=== PATIENT | female | born 1945 | race Caucasian/White ===

== ENCOUNTER 2016-09-13 06:28 | Day surgery (SDC) | payer MEDICARE, OTHER ==
--- NOTE | ~2016-09-13 | EGD ---
EGD REPORT [facility] [address] [place] [address] NAME: YONG SOARES : [birth year] STATUS : REG [facility]#: [id number] AGE: 70 ADM/REG DATE : 09/13/16 MR#: [id number] REPORT SERV DATE: 09/13/16 DICTATED BY: SHAAN GUTIÉRREZ DATE: 09/13/16 REPORT STATUS : Draft TRANSCRIBED BY: [facility] DATE: 09/13/16 Endoscopy Center Patient Name: Yong Soares Date of : 1945 Attending MD: SHAAN GUTIÉRREZ MD Procedure Date No Time: 09/13/2016 Procedure: Colonoscopy Indications: Screening for colorectal malignant neoplasm Referring MD: BUCKY CHRISTY Medicines: as per anesthesia Complications: No immediate complications. Procedure: Pre-Anesthesia Assessment: - ASA Grade Assessment: II - A patient with mild systemic disease. After I obtained informed consent, the scope was passed under direct vision. Throughout the procedure, the patient's blood pressure, pulse, and oxygen saturations were monitored continuously. The PCF [id number] was introduced through the anus and advanced to the cecum, identified by appendiceal orifice and ileocecal valve. The colonoscopy was somewhat difficult due to significant looping and a tortuous colon. The patient tolerated the procedure. The quality of the bowel preparation was adequate to identify polyps. Findings: The perianal and digital rectal examinations were normal. A sessile polyp was found in the sigmoid colon. The polyp was 5 mm in size. The polyp was removed with a jumbo cold forceps. Resection and retrieval were complete. Internal hemorrhoids were found during endoscopy and were mild. Impression: - One 5 mm polyp in the sigmoid colon. Resected and retrieved. - Internal hemorrhoids. Recommendation: - Await pathology results. - Repeat colonoscopy for surveillance based on pathology results. Procedure Code(s): --- Professional --- 33980, Colonoscopy, flexible, proximal to splenic flexure; with biopsy, single or multiple Diagnosis Code(s): --- Professional --- EGD REPORT [facility] [address] [id number] NAME: YONG SOARES : [birth year] STATUS : REG [facility]#: [id number] AGE: 70 ADM/REG DATE : 09/13/16 MR#: [id number] REPORT SERV DATE: 09/13/16 DICTATED BY: SHAAN GUTIÉRREZ. DATE: 09/13/16 REPORT STATUS : Draft TRANSCRIBED BY: [employer] DATE: 09/13/16 D12.5, Benign neoplasm of sigmoid colon K64.8, Other hemorrhoids Z12.11, Encounter for screening for malignant neoplasm of colon CPT copyright 2013 [employer]. All rights reserved. The codes documented in this report are preliminary and upon adult education professional review may be revised to meet current compliance requirements. SHAAN GUTIÉRREZ MD 09/13/2016 8:40 AM This report has been signed electronically. Number of Addenda: 0 Note Initiated On: 09/13/2016 7:20 AM Scope Withdrawal Time 0 hours 11 minutes 8 seconds [id number] [id number]
[~2016-09-13 06:28] MED LIST: ASAB PO; ATEN25 PO; AYGESTIN5 MG PO; BETIMOL0.25 % OP; CALTRA600D PO; ESTRACE0.5 MG PO; MAXZIDE PO; MULTIPLE VIT PO; POTASSIUM GLUCO99 MG PO; PRESERVISION A1 EAC1 PO; PRINZIDE1 TAB PO; XALAT OPH; ZYRTEC ALLGY10 MG PO
== END 2016-09-13 23:59 | disposition home health service (06) ==
LOC: DMU 06:28
PROVIDERS: Internal Medicine Gastroenterology
PROC: 0DBN8ZX Excision of Sigmoid Colon, Via Natural or Artificial Opening Endoscopic, Diagnostic (ICD-10-PCS; principal; 2016-09-13 08:00)
DX: Z12.11 Encounter for screening for malignant neoplasm of colon (principal); D12.5 Benign neoplasm of sigmoid colon; K64.8 Other hemorrhoids; I10 Essential (primary) hypertension; M19.90 Unspecified osteoarthritis, unspecified site; Z98.51 Tubal ligation status; Z90.49 Acquired absence of other specified parts of digestive tract; Z98.890 Other specified postprocedural states
CPT/HCPCS: 88305